=== PATIENT | male | born 1980 | race African-American/Black ===

== ENCOUNTER 2016-10-29 19:47 | Emergency (ER) | payer MEDICAID ==
[~2016-10-29] VITALS: Ht 182.9 cm; Wt 128.0 kg
[~2016-10-29 19:47] MED LIST: AMLODIPINE; REMERON
[2016-10-29] MEDS ORDERED: KETOROLAC 60MG/2ML VIAL IM ONE (22:45)
[2016-10-29 23:03] LABS: BASOPHILS % 1.2 % (0.0-2.0); EOSINOPHILS % 1.3 % (0.0-5.0); HEMATOCRIT. 41.3 % (42.0-52.0); HEMOGLOBIN. 14.4 g/dL (14.0-18.0); LYMPHOCYTES % 49.5 % (20.0-50.0); MEAN CORPUSCULAR HEMOGLOBIN 29.6 pg (28.0-32.0); MEAN CORPUSCULAR VOLUME 85.1 fL (80.0-94.0); MEAN PLATELET VOLUME 8.2 fl (7.4-10.4); MONOCYTES % 7.9 % (2.0-8.0); NEUTROPHILS % 40.1 % (40.0-76.0); PLATELET 243 x1000/uL (130-400); RED BLOOD CELL COUNT 4.85 mill/uL (4.7-6.1); RED CELL DISTRIBUTION WIDTH 14.4 % (11.6-14.6)
[2016-10-30 01:18] VITALS: BP 146/97
== END 2016-10-30 01:33 | disposition home or self-care (01) ==
LOC: ER 19:47
DX: M25.571 Pain in right ankle and joints of right foot (principal); Z88.0 Allergy status to penicillin
CPT/HCPCS: 36415; 73610; 84550; 85025; 96372; 99285; J1885

== ENCOUNTER 2016-11-28 17:40 | Emergency (ER) | payer MEDICAID ==
[~2016-11-28] VITALS: Ht 182.9 cm; Wt 137.0 kg
[2016-11-28 17:43] VITALS: BP 149/98
== END 2016-11-28 22:30 | disposition left against medical advice (07) ==
LOC: ER 17:40
DX: Z53.21 Procedure and treatment not carried out due to patient leaving prior to being seen by health care provider (principal); Z88.6 Allergy status to analgesic agent; Z88.0 Allergy status to penicillin

== ENCOUNTER 2018-10-01 23:34 | Emergency (ER) | payer MEDICAID ==
[~2018-10-01] VITALS: Ht 185.4 cm; Wt 130.0 kg
[2018-10-02] MEDS ORDERED: METOCLOPRAMIDE HCL 10MG/2ML VIAL IV ONE (01:30)
[2018-10-02] MEDS ORDERED: DIPHENHYDRAMINE 50MG/ML VIAL IV ONE (01:30)
[2018-10-02 01:43] LABS: BASOPHILS % 1.4 % (0.0-2.0); EOSINOPHILS % 4.7 % (0.0-5.0); HEMATOCRIT. 39.2 % (42.0-52.0); HEMOGLOBIN. 13.9 g/dL (14.0-18.0); LYMPHOCYTES % 37.6 % (20.0-50.0); MEAN CORPUSCULAR HEMOGLOBIN 30.8 pg (28.0-32.0); MEAN CORPUSCULAR VOLUME 87.1 fL (80.0-94.0); MEAN PLATELET VOLUME 8.4 fl (7.4-10.4); MONOCYTES % 5.9 % (2.0-8.0); NEUTROPHILS % 50.4 % (40.0-76.0); PLATELET 224 x1000/uL (130-400); RED CELL DISTRIBUTION WIDTH 13.8 % (11.6-14.6)
[2018-10-02 01:54] LABS: CHLORIDE 109 mEq/L (98-107)
[2018-10-02 05:18] VITALS: BP 128/77
== END 2018-10-02 05:20 | disposition home or self-care (01) ==
LOC: ER 23:34
DX: J32.9 Chronic sinusitis, unspecified (principal); R07.89 Other chest pain; F17.210 Nicotine dependence, cigarettes, uncomplicated; Z71.6 Tobacco abuse counseling
CPT/HCPCS: 36415; 70450; 71045; 80053; 84484; 85025; 93005; 96374; 96375; 99284; 99406; J1200; J2765; Z7610